=== PATIENT | female | born 1950 | race American Indian/Alaskan Native ===

== ENCOUNTER 2016-06-21 09:38 | Outpatient (CLI) | payer MEDICARE ==
--- NOTE | 2016-06-22 12:19 | Ultrasound Report ---
Limited abdominal ultrasound: Imaging of the liver is echogenically unremarkable however there does appear to be a Nicho's lobe configuration. The pancreatic body and head appear grossly normal. The tail is obscured. The gallbladder contains echogenic non-shadowing material consistent with sludge. No inflammatory changes identified. The CBD diameter is 6.5 mm but seen only in a short segment. The right renal length is 11.1 cm. The kidney may be slightly echogenic. There is no mass or hydronephrosis. The transverse diameter of the proximal abdominal aorta is 1.7 cm. Impressions: 1. Gallbladder sludge. 2. Suspicion of echogenic kidney which may indicate renal medical disease.
--- NOTE | 2016-06-22 12:36 | Ultrasound Report ---
Renal ultrasound: The right renal length is 11.1 cm.The kidney appears to be slightly echogenic but no other finding is noted.The left renal length is 9.8 cm. The kidney may also be slightly echogenic. There is an upper pole well-defined echolucent mass measuring 2.1 cm consistent with a cyst. No other findings. Imaging of the urinary bladder is grossly normal. Impression: Slightly echogenic kidneys raising suspicion of mild medical renal disease. Small left renal cyst.
== END 2016-06-21 09:39 | disposition home or self-care (01) ==
LOC: US 09:38
PROVIDERS: ATTEND Family Medicine
DX: J44.9 Chronic obstructive pulmonary disease, unspecified (principal); N28.1 Cyst of kidney, acquired; K82.8 Other specified diseases of gallbladder; N28.89 Other specified disorders of kidney and ureter; R10.11 Right upper quadrant pain
CPT/HCPCS: 76705; 76770

== ENCOUNTER 2017-12-10 10:21 | Outpatient (CLI) | payer MEDICARE, OTHER ==
[2017-12-10 10:49] LABS: Hematocrit 37.8 % (30.3-42.9); Hemoglobin 12.4 gm/dl (10.1-14.3); Mean Corpuscular HGB Conc 33 % (30-34); Mean Corpuscular Hemoglobin 30 pg (28-32); Mean Corpuscular Volume 92 fl (79-97); Platelet Count 195 K/mm3 (140-440); Red Blood Count 4.12 M/mm3 (3.65-5.03); Red Cell Distribution Width 15.8 % (13.2-15.2)
[2017-12-10 11:06] LABS: Albumin 4.2 g/dL (3.9-5); Calcium 10.2 mg/dL (8.4-10.2)
--- NOTE | 2017-12-10 11:39 | XRay Report ---
ROUTINE CHEST, TWO VIEWS: HISTORY: COPD. Compared to 05/08/16. The lungs are severely hyperinflated consistent with advanced emphysema/COPD. There is a new irregular opacity in the right upper lobe measuring approximately 2.4 x 1.0 cm on the PA view. Although this could represent focal atelectasis or scarring, I cannot exclude a pulmonary nodule/mass. The remainder of the lungs are clear. No evidence for pneumonia, large pleural effusion or pneumothorax. Heart and mediastinal structures are unremarkable. The bony structures are grossly intact. IMPRESSION: Advanced emphysema. New irregular right upper lobe opacity as described above. Further evaluation with CT chest with contrast is recommended.
--- NOTE | 2017-12-10 15:21 | Cat Scan Report ---
CT CHEST WITH CONTRAST: HISTORY: COPD. COMPARISON: 05/08/16. TECHNIQUE: Helical CT in 1.25mm intervals following IV contrast. Sagittal and coronal reformatted images. FINDINGS: Thyroid gland: Normal. Tracheobronchial tree: Normal. Esophagus: Normal. Heart: Normal. Pericardium: Normal. Mediastinum: Normal. No evidence for mediastinal mass or adenopathy. Lung Yi: Severe centrilobular emphysematous changes are identified bilaterally. There is a new spiculated density in the posterior right upper lobe measuring up to 4.0 x 2.5 cm in axial dimensions. No evidence for infiltrate. Pleural Spaces: Normal. Musculoskeletal: Mild thoracic spondylosis. No evidence for fracture or suspicious bony lesion. IMPRESSION: Advanced emphysema. New spiculated masslike density in the posterior right upper lobe as described above. Primary lung neoplasm cannot be excluded. This lesion should be accessible for percutaneous CT-guided biopsy if needed.
== END 2017-12-10 10:22 | disposition home or self-care (01) ==
LOC: CT 10:21
PROVIDERS: ATTEND Internal Medicine
DX: J44.9 Chronic obstructive pulmonary disease, unspecified (principal); R91.1 Solitary pulmonary nodule; M47.894 Other spondylosis, thoracic region
CPT/HCPCS: 36415; 71046; 71260; 80053; 85027; Q9967

== ENCOUNTER 2017-12-26 06:31 | Day surgery (SDC) | payer MEDICARE, OTHER ==
[2017-12-26 07:47] LABS: Basophils % (Auto) 0.7 % (0.0-1.8); Eosinophils # (Auto) 0.2 K/mm3 (0.0-0.4); Eosinophils % (Auto) 3.4 % (0.0-4.3); Hematocrit 36.8 % (30.3-42.9); Hemoglobin 12.2 gm/dl (10.1-14.3); Lymphocytes # (Auto) 2.5 K/mm3 (1.2-5.4); Lymphocytes % (Auto) 35.2 % (13.4-35.0); Mean Corpuscular HGB Conc 33 % (30-34); Mean Corpuscular Hemoglobin 30 pg (28-32); Mean Corpuscular Volume 92 fl (79-97); Monocytes # (Auto) 0.7 K/mm3 (0.0-0.8); Monocytes % (Auto) 9.9 % (0.0-7.3); Platelet Count 194 K/mm3 (140-440); Red Blood Count 4.01 M/mm3 (3.65-5.03); Red Cell Distribution Width 14.4 % (13.2-15.2)
[2017-12-26 07:58] LABS: INR 0.95 (0.87-1.13)
[2017-12-26 07:59] LABS: Partial Thromboplastin Time 32.3 Sec. (24.2-36.6)
[2017-12-26] MEDS ORDERED: SUBLIMAZE IV NR (08:19)
[2017-12-26] MEDS ORDERED: VERSED IV NR (08:19)
--- NOTE | 2017-12-26 10:06 | Cat Scan Report ---
CT BIOPSY LUNG RIGHT HISTORY: COPD, right upper lobe mass. DESCRIPTION OF PROCEDURE: Informed consent was obtained. Sterile technique was utilized. Moderate sedation was accomplished with Versed and fentanyl. The patient was sedated for 15 minutes. Independent cardiorespiratory monitoring by RN. Intraobserver time of [address] guidance, a 19-gauge introducer needle was advanced to the leading edge of an irregular right upper lobe mass measuring 3.9 x 2.3 cm. 4 separate 2.2 cm 20-gauge core biopsies were obtained for pathology. The samples were deemed adequate by the pathologist on site. No complications. IMPRESSION: Successful CT guided biopsy of a right upper lobe mass as detailed above.
--- NOTE | 2017-12-26 11:47 | XRay Report ---
AP CHEST: HISTORY: Recent right lung biopsy, right upper lobe mass Recent CT-guided biopsy of a right upper lobe mass was performed. A relatively small right apical pneumothorax is identified measuring 2.7 cm in thickness. This is estimated at 15%. The post biopsy CT scan demonstrated a tiny left pneumothorax estimated at 1-2%. Underlying emphysema is again noted. Spiculated density in the right upper lobe is unchanged. The remainder of the lungs are clear. Normal heart size. IMPRESSION: Small right apical pneumothorax is identified following biopsy. See above. A followup chest x-ray will be ordered.
--- NOTE | 2017-12-26 14:20 | XRay Report ---
AP CHEST: HISTORY: Followup right pneumothorax, recent right lung biopsy There has been minimal improvement in the right apical pneumothorax since 1131 hrs. The right apical pneumothorax has decreased from 2.7 cm to 2.5 cm in thickness. The remainder of the examination is unchanged. IMPRESSION: Minimal improvement or no appreciable change in the right pneumothorax.
[2017-12-26 15:44] VITALS: BP 121/70
== END 2017-12-26 14:35 | disposition home or self-care (01) ==
LOC: CATHLABREC 06:31 → EDSTATUS 08:30 → CATHLABREC 14:35
PROVIDERS: ATTEND Internal Medicine
DX: J44.0 Chronic obstructive pulmonary disease with (acute) lower respiratory infection (principal); J15.8 Pneumonia due to other specified bacteria; Z88.1 Allergy status to other antibiotic agents; Z79.01 Long term (current) use of anticoagulants
CPT/HCPCS: 32405; 36415; 71045; 77012; 85025; 85610; 85730; 88305; 88312; 88333; 88334; J2250; J3010; 88173

== ENCOUNTER 2019-02-11 06:57 | Outpatient (CLI) | payer MEDICARE, OTHER ==
--- NOTE | 2019-02-11 08:54 | Cat Scan Report ---
CT CHEST WITH CONTRAST INDICATION / CLINICAL INFORMATION: RIGHT UPEER LOBE SCAR. Lung mass TECHNIQUE: Axial CT images were obtained through the chest after 100 IV contrast. Sagittal and coronal reformatt ed images. All CT scans at this location are performed using CT dose reduction for ALARA by means of automated exposure control. COMPARISON: 12/10/2017 FINDINGS: HEART: Normal heart size. No pericardial effusion. Moderate coronary artery calcifications are noted. THORACIC AORTA: No significant abnormality. MEDIASTINUM and MARY: No significant abnormality. LUNGS: Moderate to severe emphysematous changes in the upper lobes are again identified. Focal densit y in the right upper lobe has decreased from 4.0 x 2.5 cm to 3.0 x 0.9 cm. The remainder of the lungs are clear. No new nodule or infiltrate. PLEURA: No significant pleural effusion. No pneumothorax. Small Bochdalek hernia at the left lung bas e is unchanged. SKELETAL SYSTEM: Mild osteopenia and thoracic spondylosis. No fracture or suspicious bony lesion is i dentified. UPPER ABDOMEN: No significant abnormality. ADDITIONAL FINDINGS: None. IMPRESSION: Decrease in size of the right upper lobe scar as described above. No new suspicious pulmonary lesion or thoracic adenopathy. Emphysema. Mild osteopenia and degenerative changes in the spine. Signer Name: Brandon Rg Jr, MD Signed: 02/11/2019 8:49 AM Workstation Name: [id number]
== END 2019-02-11 06:58 | disposition home or self-care (01) ==
LOC: CT 06:57
PROVIDERS: ATTEND Internal Medicine
DX: J43.9 Emphysema, unspecified (principal); M85.88 Other specified disorders of bone density and structure, other site; I25.10 Atherosclerotic heart disease of native coronary artery without angina pectoris; K21.9 Gastro-esophageal reflux disease without esophagitis; I10 Essential (primary) hypertension
CPT/HCPCS: 36415; 71260; 82565; 84520; Q9967

== ENCOUNTER 2019-02-21 06:59 | Outpatient (CLI) | payer MEDICARE, OTHER ==
[2019-02-21 07:21] LABS: Hematocrit 37.4 % (30.3-42.9); Hemoglobin 12.2 gm/dl (10.1-14.3); Mean Corpuscular HGB Conc 33 % (30-34); Mean Corpuscular Volume 90 fl (79-97); Platelet Count 170 K/mm3 (140-440); Red Blood Count 4.16 M/mm3 (3.65-5.03); Red Cell Distribution Width 14.8 % (13.2-15.2)
[2019-02-21 07:39] LABS: Albumin 4.7 g/dL (3.9-5); Calcium 10.4 mg/dL (8.4-10.2)
--- NOTE | 2019-02-21 08:39 | Fluoroscopy Report ---
UPPER GI HISTORY: GE REFLUX. Hernia TECHNIQUE: Single and double contrast barium technique utilized to evaluate the esophagus, stomach, and duodenal C-loop. FINDINGS: To begin the exam, swallowing was evaluated in the lateral position under direct fluorosco py. Swallowing was normal. The esophagus is normal caliber and mucosal pattern. No mass or abnormal dilatation. There did appear to be delayed emptying of the esophagus throughout this exam with occasional tertiary contractions. No hiatal hernia is visualized. One or 2 episodes of mild gastroesophageal reflux to the mid esophagu s was witnessed. The gastric cavity is normal caliber and mucosal pattern. The duodenal bulb and duodenal sweep are within normal limits. IMPRESSION: Mild esophageal dysmotility. Occasional episodes of mild gastroesophageal reflux. No mas s or mucosal lesion is appreciated. Fluoroscopic time: 1.8 minutes Number of fluoroscopic images: 16 Signer Name: Brandon Rg Jr, MD Signed: 02/21/2019 8:35 AM Workstation Name: [id number]
== END 2019-02-21 07:00 | disposition home or self-care (01) ==
LOC: FLUORO 06:59
PROVIDERS: ATTEND Internal Medicine
DX: K21.9 Gastro-esophageal reflux disease without esophagitis (principal); I10 Essential (primary) hypertension; J43.9 Emphysema, unspecified
CPT/HCPCS: 36415; 74247; 80053; 85027